=== PATIENT | female | born 1950 | race Caucasian/White ===

== ENCOUNTER 2021-06-07 13:20 | Emergency (ER) | payer MEDICARE, OTHER, SELFPAY ==
[2021-06-07 13:35] VITALS: BP 167/77; PULSE 83; RESP 15; TEMP 36.1; O2SAT 97; BMI 28.3
--- NOTE | 2021-06-07 16:33 | PC.NURSE ---
went to lobby to bring patient back to a room. Patient was walking out of department. I have been waiting for three hours and have a boat to catch I can't be waiting here all day and wait for another 20min back there to be seen Apologized to patient for the wait, offered to bring patient back to the room I can't risk missing my boat Apologized to patient again for the wait. Patient left department.
== END 2021-06-07 16:36 | disposition left against medical advice (07) ==
PROVIDERS: Emergency Provider Emergency Medicine
DX: Z53.21 Procedure and treatment not carried out due to patient leaving prior to being seen by health care provider (principal)
CPT/HCPCS: 99281